=== PATIENT | female | born 1965 | race Caucasian/White ===

== ENCOUNTER 2019-09-10 07:44 | Day surgery (SDC) | payer BC ==
[~2019-09-10] VITALS: Ht 165.1 cm; Wt 80.8 kg
[2019-09-10] VITALS (7 sets, daily range): BP systolic 138–151; BP diastolic 76–88
[~2019-09-10 07:44] MED LIST: SODIUM CHLORIDE 0.9% 1000ML 1,000 ML IV ONE
[2019-09-10] MEDS ORDERED: PROPOFOL 10 MG/ML 20ML VIAL IV ONE (10:24)
--- NOTE | 2019-09-10 11:12 | NUR ---
DC PT DC HOME VIA WC,NO DISTRESS NOTED,PT DENIED ANY PAIN OR DISCOMFORTS. ACCOMPANIED BY SPOUSE
== END 2019-09-10 11:12 | disposition home or self-care (01) ==
LOC: ENDO 07:44 → DAH 07:44 → ENDO 11:12
PROVIDERS: ATTEND Internal Medicine Gastroenterology
DX: K92.1 Melena (principal); K29.70 Gastritis, unspecified, without bleeding; K29.80 Duodenitis without bleeding; R14.2 Eructation; K25.9 Gastric ulcer, unspecified as acute or chronic, without hemorrhage or perforation; K22.8 Other specified diseases of esophagus; Z90.49 Acquired absence of other specified parts of digestive tract; Z88.1 Allergy status to other antibiotic agents; Z86.010 Personal history of colon polyps
CPT/HCPCS: 43239; A4215; A4221; A4222; A4223; A4606; A4615; A4663; J2704; J7030